=== PATIENT | male | born 1995 | race Caucasian/White ===

== ENCOUNTER 2018-07-09 12:20 | Emergency (ER) | payer BC ==
[2018-07-09] MEDS ORDERED: fentaNYL 100 MCG/2 ML INJ IVP ONE (13:12)
[2018-07-09] MEDS ORDERED: PROPOFOL 200 MG/20 ML VIAL ONE (13:29)
--- NOTE | 2018-07-09 13:43 | EDPHY ---
H & P Smoking Status: Never smoked Time Seen by Provider: 07/09/18 13:00 HPI/ROS: CLINICAL IMPRESSION: Left shoulder dislocation ASSESSMENT/PLAN: 23-year-old male presents to the emergency department with an acute left shoulder dislocation after sleeping for a ball. Patient reports he has had 9 prior shoulder dislocations but has never seen an orthopedic provider. Patient has an obvious anterior shoulder dislocation on initial evaluation. He required propofol for conscious sedation, overseen by Dr. Bell. Please see conscious sedation procedure by Dr. eBll. Shoulder was successfully reduced and post reduction x-rays show no evidence of Hill-Sachs lesion or fracture. He was neurovascularly intact. Placed in a sling and given orthopedic follow- up. Warning signs return to ED sooner alignment discharge. DIFFERENTIAL DX: Differential includes but not limited to acute dislocation, neurovascular compromise, Hill-Sachs lesion, underlying fracture ED PROCEDURES: Procedure: Splint placement. A left arm sling splint was applied by p 3 armament/ordnance ima technician, supervised by myself. After application of the splint I returned and re-examined the patient. The splint was adequately immobilizing the joint and distal to the splint the patient's circulation and sensation was intact. ED COURSE: 1:55 p.m.: Preliminary review of post reduction x-ray shows adequate relocation of shoulder dislocation. No obvious underlying fracture. Patient in a shoulder sling, feeling well. Will plan to discharge to Orthopedics for follow-up CHIEF COMPLAINT: Left shoulder dislocation HPI: 23-year-old male with past medical history of frequent left shoulder dislocations presents to the emergency department with an acute left shoulder dislocation after diving for a ball. Patient reports having had previous shoulder dislocations 9 previous times in the past. He has never had surgery orthopedic consultation. He reports no numbness or loss of sensation to the hand or deltoid muscle. He denies hitting his head and had no other injury. PAST MEDICAL HISTORY: Frequent left shoulder dislocations Pertinent Past Surgical History: No prior Ortho surgery reported Social History: Otherwise healthy REVIEW OF SYSTEMS: All other systems negative Constitutional: No fever, no chills Musculoskeletal: No deformity, + joint pain Skin: No rashes, color change or open wounds. Neurological: No sensory loss or weakness. PHYSICAL EXAM: General Appearance: Alert, oriented, appropriate for age, cooperative, NAD, well hydrated, non-toxic appearing, VSS, no hypoxia. Neurological: Alert and oriented x 3, normal sensation and strength of extremities Skin: Warm, dry, no rashes, no nodules on palpation. Musculoskeletal: Patient with obvious anterior shoulder dislocation on exam. No open wounds. Neurovascularly intact. MEDICAL DECISION MAKING: Patient was seen independently.Secondary supervising physician at time of evaluation was Dr. Bell . Diagnosis: Left shoulder dislocation. New, requires workup Summary: See assessment and plan for summary of ED visit Independent visualization of images, tracing, or specimens yes. Patient Progress stable. (Brandan Bateman) Constitutional: Initial Vital Signs Temperature (C) 36.3 C 07/09/18 12:30 Heart Rate 73 07/09/18 12:30 Respiratory Rate 18 07/09/18 12:30 Blood Pressure 100/66 07/09/18 12:30 O2 Sat (%) 98 07/09/18 12:30 O2 Delivery Mode [Post Room Air Procedure 2nd] O2 Delivery Mode [Post Non-Rebreather Mask Procedure 1st] O2 Delivery Mode [Procedural Non-Rebreather Mask 1st] O2 Delivery Mode [.Immediate Non-Rebreather Mask Pre-Procedure] O2 Delivery Mode Room Air O2 (L/minute) [.Immediate Pre- 15 Procedure] Allergies/Adverse Reactions: No Known Allergies Allergy (Unverified 07/09/18 12:29) MDM/Departure - [facility] Imaging: I viewed and interpreted images myself - [facility] Procedures: Procedure: Procedural sedation. A pre-sedation evaluation was completed on the patient at 13 15. Patient is an appropriate candidate for procedural sedation. The risks of the sedation were discussed with the patient. A time out was completed. The patient was sedated with 100 mcg of fentanyl and 100 mg of propofol in total. The patient was monitored with continuous pulse oximetry and monitoring specialist. There were no complications and no significant hypoxemia. I remained at the bedside for the sedation. The total time I spent in the procedural sedation was 20 min. Procedure: Dislocation reduction. The dislocation of the left shoulder was reduced using counter traction external rotation technique without complications. Post reduction the patient' s neurovascular exam is normal. Post reduction x-ray demonstrates reduction of the joint to the anatomic position. The procedure was performed by myself. (Clemente Bell) Medications Given: Discontinued Medications Fentanyl (Sublimaze) 100 mcg IVP EDNOW ONE Stop: 07/09/18 13:13 Last Admin: 07/09/18 13:17 Dose: 100 mcg Propofol (Diprivan) 100 mg IVP EDNOW ONE Stop: 07/09/18 14:12 Last Admin: 07/09/18 14:12 Dose: 100 mg - Depart Disposition: Home, Routine, Self-Care Clinical Impression: Shoulder dislocation, recurrent Condition: Good Instructions: Shoulder Dislocation (ED) Additional Instructions: DISCHARGE INSTRUCTIONS FROM YOUR DOCTOR Thank you for visiting our emergency department today. Please keep in mind that discharge from the emergency department does not mean that there is nothing wrong - it simply means that we have not identified an emergency condition that requires further evaluation or treatment in the hospital. You should always plan to follow up with primary care for re-evaluation of your condition in the next 2-3 days. If you have been referred to a specialist, please call as soon as possible (today or tomorrow) to schedule your follow up appointment at the appropriate time. Your shoulder was successfully reduced in the emergency department. We strongly recommend he follow up with orthopedics. If you do not have an orthopedic provider a referral was given to you. Ice the shoulder for the next several days and use ibuprofen as needed for pain. Return to the emergency department for recurrent dislocation, severe pain, loss of sensation to the arm hand or fingers, fever or any other concerns. People present with illnesses and injuries in different ways, and it is always possible that we have missed something. You may always return for re-evaluation if symptoms worsen or if they are not improving or if you develop new/different symptoms. Again, thank you for choosing our emergency department. We hope that you feel better. Stand Alone Forms: Work Excuse Referrals: NONE *PRIMARY CARE P,. [Primary Care Provider] - As per Instructions Tyrel Felder MD [Medical Doctor] - 5-7 days, call for appt.
[2018-07-09] MEDS ORDERED: PROPOFOL 200 MG/20 ML VIAL IVP ONE (14:11)
[2018-07-09 14:33] VITALS: BP 126/79
== END 2018-07-09 14:32 | disposition home or self-care (01) ==
PROC: 0RSKXZZ Reposition Left Shoulder Joint, External Approach (ICD-10-PCS; principal; 2018-07-09)
DX: M24.412 Recurrent dislocation, left shoulder (principal); X50.9XXA Other and unspecified overexertion or strenuous movements or postures, initial encounter; Y92.9 Unspecified place or not applicable; Y93.89 Activity, other specified; Y99.9 Unspecified external cause status
CPT/HCPCS: J2704; J3010

== ENCOUNTER 2018-08-08 07:14 | Emergency (ER) | payer BC ==
[2018-08-08] MEDS ORDERED: fentaNYL 100 MCG/2 ML INJ IVP ONE (07:30)
[2018-08-08] MEDS ORDERED: ONDANSETRON 4 MG/2 ML VIAL IVP ONE (07:30)
[2018-08-08] MEDS ORDERED: PROPOFOL 200 MG/20 ML VIAL ONE (07:34)
--- NOTE | 2018-08-08 07:34 | EDPHY ---
H & P Time Seen by Provider: 08/08/18 07:25 HPI/ROS: CHIEF COMPLAINT: "Shoulder dislocation" HISTORY OF PRESENT ILLNESS: Patient is a 23-year-old male who presents emergency department with shoulder dislocation. He has had numerous shoulder dislocations in the past. He was here in July 2018 for shoulder reduction. This required conscious sedation. He states he is usually difficult to get in and they cannot get the shoulder in without conscious sedation. Patient states he was lying in bed when shoulder popped out. No recent trauma. Patient is scheduled with Dr. Felder to have a shoulder repaired. He has no numbness or tingling. REVIEW OF SYSTEMS: 10 systems were reveiwed and are negative with the exception of the elements mentioned in the history of present illness. Past Medical/Surgical History: Includes frequent shoulder dislocation Past surgical history: Negative Social history: The patient does not smoke Smoking Status: Never smoked Physical Exam: Vitals noted GENERAL: Mild acute distress, alert. HEENT: Eyes normal to inspection, normal pharynx, no signs of dehydration. Normal airway NECK: Normal, supple. RESPIRATORY: Clear to auscultation bilaterally, no rales, rhonchi or wheezing. CVS: Regular rate and rhythm, no rubs, murmurs, or gallops. ABDOMEN: Soft, nontender, nondistended, no organomegaly. BACK: Normal to inspection, no CVA tenderness. SKIN: Normal color, no rash, warm, dry. No pallor. EXTREMITIES: Patient has a left shoulder step-off with gap at the deltoid. There is tenderness to palpation. Mild muscle spasm. Neurovascular intact distally. NEURO/PSYCH: Alert and oriented, normal mood and affect, normal motor sensory exam. No obvious cranial nerve deficit. Constitutional: Initial Vital Signs Temperature (C) 36.6 C 08/08/18 07:20 Heart Rate 66 08/08/18 07:20 Respiratory Rate 18 08/08/18 07:20 Blood Pressure 129/96 H 08/08/18 07:20 O2 Sat (%) 98 08/08/18 07:20 O2 Delivery Mode Room Air O2 (L/minute) 15 Allergies/Adverse Reactions: No Known Allergies Allergy (Unverified 08/08/18 07:23) Home Medications: Medication Instructions Recorded Gabapentin 08/08/18 Medical Decision Making ED Course/Re-evaluation: In the emergency department discussed possible etiologies with the patient. I answered all his questions. Attempted deltoid massage with arm elevation. This did not relocate his shoulder. He tolerated well. Patient consented to conscious sedation. He last ate last evening at 10:00 p.m.. He has tolerated conscious sedation well previously. Post reduction x-ray: Please refer the dictated report. Patient has likely Hill-Sachs deformity. The joint was relocated. Patient was placed in a sling. He was neurovascular intact distally post sling placement. The patient recovered well. Answer my questions appropriately. He is given follow-up with . Differential Diagnosis: My differential includes but is not limited to fracture, dislocation, sprain, contusion - Data Points Medications Given: Discontinued Medications Fentanyl (Sublimaze) 100 mcg IVP EDNOW ONE Stop: 08/08/18 07:31 Last Admin: 08/08/18 07:36 Dose: 100 mcg Ondansetron HCl (Zofran) 4 mg IVP EDNOW ONE Stop: 08/08/18 07:31 Last Admin: 08/08/18 07:36 Dose: 4 mg Propofol (Diprivan) 100 mg IVP EDNOW ONE Stop: 08/08/18 08:06 Last Admin: 08/08/18 08:05 Dose: 100 mg Departure - Departure Disposition: Home, Routine, Self-Care Clinical Impression: Dislocation of left shoulder joint Qualifiers: Encounter type: initial encounter Qualified Code(s): S43.005A - Unspecified dislocation of left shoulder joint, initial encounter Condition: Fair Instructions: Shoulder Dislocation (ED) Additional Instructions: Keep your sling in place. Call Friday to make the first available appointment with Dr. Felder. Referrals: Tyrel Felder MD [Medical Doctor] - 2-3 days without fail Stand Alone Forms: Work Excuse
[2018-08-08 08:01] VITALS: BP 109/83
[2018-08-08] MEDS ORDERED: PROPOFOL 200 MG/20 ML VIAL IVP ONE (08:05)
== END 2018-08-08 08:45 | disposition home or self-care (01) ==
LOC: EDUNIT#
PROC: 0RSKXZZ Reposition Left Shoulder Joint, External Approach (ICD-10-PCS; principal; 2018-08-08)
DX: S43.005A Unspecified dislocation of left shoulder joint, initial encounter (principal); X50.9XXA Other and unspecified overexertion or strenuous movements or postures, initial encounter; Y92.9 Unspecified place or not applicable; Y93.9 Activity, unspecified; Y99.9 Unspecified external cause status
CPT/HCPCS: 96374; J2405; J2704; J3010

== ENCOUNTER → 2018-08-13 | Outpatient (CLI) | payer BC | LOC: FIMAGING 12:31 | PROVIDERS: ATTEND Internal Medicine | DX: Z01.818 Encounter for other preprocedural examination (principal); E03.9 Hypothyroidism, unspecified; F32.9 Major depressive disorder, single episode, unspecified ==

== ENCOUNTER 2018-11-03 09:27 | Emergency (ER) | payer BC ==
[2018-11-03] MEDS ORDERED: NS 1,000 ML IV ONE ×2 (09:53)
--- NOTE | 2018-11-03 09:59 | EDPHY ---
H & P Stated Complaint: diarrhea, Nausea x 3 days Time Seen by Provider: 11/03/18 09:44 HPI/ROS: CHIEF COMPLAINT: "I feel dehydrated" HISTORY OF PRESENT ILLNESS: 23-year-old male, generally healthy, no history of chronic abdominal pathology abdominal surgeries complaining of 3 days of intractable diarrhea described as watery diarrhea greater than 20 episodes per 24 hour period. Intermittent abdominal cramping with no focal abdominal pain. Intermittent nausea with no vomiting. He is able tolerate oral intake however this elicits nausea and further episode of diarrhea. Denies: Untreated water sources, international travel, recent antibiotic use, fever, chills, flu-like symptoms, rash PRIMARY CARE PROVIDER: REVIEW OF SYSTEMS: 10 systems reviewed and negative with the exception of the elements mentioned in the history of present illness PAST MEDICAL & SURGICAL HISTORY: No pertinent medical or surgical history SOCIAL HISTORY: Nonsmoker PHYSICAL EXAM (Prior to examination, patient consented to physical exam, hands were washed and my usual and customary physical exam procedures followed) 1) GENERAL: Well-developed, well-nourished, alert and oriented. Appears to be in no acute distress. 2) HEAD: Normocephalic, atraumatic 3) HEENT: Pupils equal, round, reactive to light bilaterally. Sclera anicteric. Nasopharynx, oropharynx, clear, no lesions. Dry mucous membranes. 4) NECK: Full range of motion, no meningeal signs. 5) LUNGS: Clear auscultation bilaterally, no wheezes, no rhonchi, no retractions. 6) HEART: Regular rate and rhythm, no murmur, no heave, no gallop. 7) ABDOMEN: No guarding, no rebound, no focal tenderness, negative McBurney's, negative Dickens's, negative Rovsing's, negative peritoneal sign, I am unable to elicit any abdominal pain 8) MUSCULOSKELETAL: Moving all extremities, no focal areas of tenderness, no obvious trauma. No peripheral edema or discoloration. 9) BACK: No CVA tenderness, no midline vertebral tenderness, no fluctuance, no step-off, no obvious trauma, no visual or palpable abnormality. 10) SKIN: No rash, no petechiae. 11) Psychiatric: Patient is oriented X 3, there is no agitation. DIFFERENTIAL DIAGNOSIS: In no particular order including but not limited to infectious diarrhea, functional diarrhea, bowel obstruction, acute appendicitis - Personal History Current Tetanus Diphtheria and Acellular Pertussis (TDAP): Yes - Medical/Surgical History Hx Asthma: No Hx Chronic Respiratory Disease: No Hx Diabetes: No Hx Cardiac Disease: No Hx Renal Disease: No Hx Cirrhosis: No Hx Alcoholism: No Hx HIV/AIDS: No Hx Splenectomy or Spleen Trauma: No Other PMH: GI issues, anxiety - Social History Smoking Status: Never smoked Constitutional: Initial Vital Signs Temperature (C) 36.7 C 11/03/18 09:29 Heart Rate 91 11/03/18 09:29 Respiratory Rate 18 11/03/18 09:29 Blood Pressure 120/83 H 11/03/18 09:29 O2 Sat (%) 96 11/03/18 09:29 O2 Delivery Mode Room Air Allergies/Adverse Reactions: No Known Allergies Allergy (Verified 11/03/18 09:31) Home Medications: Medication Instructions Recorded Gabapentin 08/08/18 Compazine 10mg (*) 11/03/18 Prozac 20 MG (*) 11/03/18 Synthroid 11/03/18 Medical Decision Making ED Course/Re-evaluation: 1:20 p.m.: Re-evaluation. Patient has received IV hydration. Discussed his laboratory results with him. He was unable provide stool sample while in the ER. Re-evaluated the patient. He is smiling. He has tolerated oral intake. He appears comfortable. No complaints of pain or discomfort. No abdominal pain. Think that acute surgical abdominal pathology such as acute appendicitis is less than likely in this patient in absence of focal abdominal pain. At this time plan will be discharge home. I provided outpatient primary care follow-up information. Definitely if he develops fever, chills, abdominal pain or any other symptoms I recommend he return to the ER immediately for re- evaluation. He feels comfortable being discharged. Patient feels comfortable being discharged. All questions and concerns addressed by myself. Patient given my usual and customary discharge precautions and instructions regarding their clinical impression. Care of patient under supervision of secondary supervising physician Dr Tse . - Data Points Laboratory Results: Laboratory Results 11/03/18 10:08 11/03/18 10:08 11/03/18 11/03/18 10:08 10:08 WBC 7.19 10^3/uL 10^3/uL (3.80-9.50) RBC 5.45 10^6/uL 10^6/uL (4.40-6.38) Hgb 17.2 g/dL g/dL (13.7-17.5) Hct 48.0 % % (40.0-51.0) MCV 88.1 fL fL (81.5-99.8) MCH 31.6 pg pg (27.9-34.1) MCHC 35.8 g/dL g/dL (32.4-36.7) RDW 12.0 % % (11.5-15.2) Plt Count 250 10^3/uL 10^3/uL (150-400) MPV 8.8 fL fL (8.7-11.7) Neut % (Auto) 62.7 % % (39.3-74.2) Lymph % (Auto) 25.9 % % (15.0-45.0) [place] % (Auto) 7.2 % % (4.5-13.0) Eos % (Auto) 2.9 % % (0.6-7.6) Baso % (Auto) 1.0 % % (0.3-1.7) Nucleat RBC Rel Count 0.0 % % (0.0-0.2) Absolute Neuts (auto) 4.51 10^3/uL 10^3/uL (1.70-6.50) Absolute Lymphs (auto) 1.86 10^3/uL 10^3/uL (1.00-3.00) Absolute Monos (auto) 0.52 10^3/uL 10^3/uL (0.30-0.80) Absolute Eos (auto) 0.21 10^3/uL 10^3/uL (0.03-0.40) Absolute Basos (auto) 0.07 10^3/uL 10^3/uL (0.02-0.10) Absolute Nucleated RBC 0.00 10^3/uL 10^3/uL (0-0.01) Immature Gran % 0.3 % % (0.0-1.1) Immature Gran # 0.02 10^3/uL 10^3/uL (0.00-0.10) Sodium 140 mEq/L mEq/L (135-145) Potassium 4.1 mEq/L mEq/L (3.5-5.2) Chloride 108 mEq/L mEq/L (97-110) Carbon Dioxide 23 mEq/l mEq/l (22-31) Anion Gap 9 mEq/L mEq/L (6-14) BUN 13 mg/dL mg/dL (7-23) Creatinine 1.0 mg/dL mg/dL (0.7-1.3) Estimated GFR > 60 Glucose 106 mg/dL H mg/dL (70-100) Calcium 9.9 mg/dL mg/dL (8.5-10.4) Total Bilirubin 0.5 mg/dL mg/dL (0.1-1.4) Conjugated Bilirubin 0.2 mg/dL mg/dL (0.0-0.5) Unconjugated Bilirubin 0.3 mg/dL mg/dL (0.0-1.1) AST 21 IU/L IU/L (17-59) ALT 23 IU/L IU/L (21-72) Alkaline Phosphatase 37 IU/L L IU/L (38-126) Total Protein 7.7 g/dL g/dL (6.3-8.2) Albumin 4.6 g/dL g/dL (3.5-5.0) Lipase 47 IU/L IU/L (23-300) Medications Given: Discontinued Medications Sodium Chloride (Ns) 1,000 mls @ 0 mls/hr IV EDNOW ONE; Wide Open PRN Reason: Protocol Stop: 11/03/18 09:54 Last Admin: 11/03/18 10:18 Dose: 1,000 mls Sodium Chloride (Ns) 1,000 mls @ 0 mls/hr IV EDNOW ONE; Wide Open PRN Reason: Protocol Stop: 11/03/18 09:54 Last Admin: 11/03/18 10:18 Dose: 1,000 mls Departure - Departure Disposition: Home, Routine, Self-Care Clinical Impression: Diarrhea Qualifiers: Diarrhea type: unspecified type Qualified Code(s): R19.7 - Diarrhea, unspecified Condition: Good Instructions: Acute Diarrhea (ED) Additional Instructions: Seek immediate medical attention if you develop new or worsening symptoms, if you develop fevers, chills, inability to tolerate oral intake or any other symptoms that concerns you. Referrals: Chacorta Funez MD [Primary Care Provider] - 1-2 days without fail
[2018-11-03 10:26] LABS: PLATELET COUNT 250 10^3/uL (150-400)
[2018-11-03 12:56] VITALS: BP 127/82
== END 2018-11-03 13:36 | disposition home or self-care (01) ==
DX: R19.7 Diarrhea, unspecified (principal); E86.9 Volume depletion, unspecified

== ENCOUNTER 2018-11-07 19:35 | Emergency (ER) | payer BC ==
[2018-11-07 19:49] VITALS: BP 144/99
--- NOTE | 2018-11-07 20:49 | EDPHY ---
H & P Time Seen by Provider: 11/07/18 19:41 HPI/ROS: HPI Took mushrooms. Now anxious. 23-year-old male by ambulance. This patient took mushrooms at approximately 3: 00 p.m.. He did this for recreational purposes. He states clearly this is not an attempted overdose. He is not suicidal or significantly depressed. He reports after doing so he became very anxious. He denies any other ingestion. No alcohol. No history of trauma or assault. ROS: Constitutional: No fever, no chills. As above. Eyes: No discharge. No changes in vision. ENT: No sore throat. No nasal congestion or rhinorrhea. Respiratory: No cough. No shortness of breath. Cardiac: No chest pain, no palpitations. Gastrointestinal: No abdominal pain, no vomiting, no diarrhea. Genitourinary: No hematuria. No dysuria or increased frequency with urination. Musculoskeletal: No back pain. No neck pain. No myalgias or arthralgias. Skin: No rashes. Neurological: No headache. No focal weakness or altered sensation. Past medical history: GI issues, shoulder surgery, anxiety. Social history: Nonsmoker. His girlfriend is currently in the room with him. No alcohol. Physical Exam: General Appearance: Alert, he is anxious but not in distress. This patient is responding to questions appropriately and in full sentences. This patient appears well-hydrated and well-nourished. Head: Normocephalic atraumatic. Eyes: Pupils equal and round no pallor or injection. No lid edema, erythema or injection. Respiratory: There are no retractions, lungs are clear to auscultation with good air movement bilaterally. Cardiovascular: Regular rate and rhythm. No murmur. Gastrointestinal: Abdomen is soft and nontender, no masses, bowel sounds normal. No focal tenderness at McBurney's point. No Dickens sign. Neurological: Motor sensory function is grossly intact. Cranial nerves are normal. Gait is normal. Skin: Warm and dry, no rashes. Musculoskeletal: Neck is supple and nontender. Extremities are symmetrical. All joints range without pain or impingement. Psychiatric: No agitation. No depression. Database: EKG: Imaging: Procedures: Emergency department course: Triage vital signs reviewed. He is mildly hypertensive. Vital signs are otherwise normal. His girlfriend is now present in the room with him. He is feeling much more comfortable. He was given 1 mg of oral Ativan for anxiety. He feels comfortable and safe going home with his girlfriend who will drive him home. She will also stay with him tonight. He is not suicidal. He denies significant depression. He denies any other ingestion. Follow-up and return to emergency department precautions have been reviewed with him. All of his questions were answered. He was discharged from the emergency department in good condition. Differential Diagnosis: The differential diagnosis on this patient includes but is not limited to anxiety reaction, psychotropic street drug affect. Suicidal ideation, sympathomimetic toxidrome, anticholinergic toxidrome unlikely. This represents a partial list of diagnoses considered. These considerations are based on history, physical exam, past history, reassessment and diagnostic testing. Smoking Status: Never smoked Constitutional: Initial Vital Signs Temperature (C) 37.3 C 11/07/18 19:48 Heart Rate 84 11/07/18 19:48 Respiratory Rate 20 11/07/18 19:48 Blood Pressure 144/99 H 11/07/18 19:48 O2 Sat (%) 95 11/07/18 19:48 O2 Delivery Mode Room Air Allergies/Adverse Reactions: No Known Allergies Allergy (Verified 11/07/18 19:48) Home Medications: Medication Instructions Recorded Gabapentin 08/08/18 Compazine 10mg (*) 11/03/18 Prozac 20 MG (*) 11/03/18 Synthroid 11/03/18 Departure - Departure Disposition: Home, Routine, Self-Care Clinical Impression: Psychotropic drug use, Anxiety reaction Condition: Good Instructions: Anxiety (ED) Additional Instructions: Read and follow provided instructions. Follow-up with your primary care physician on Friday for re-evaluation as needed. Do not take drugs or drink alcohol. Return to the emergency department for worsening symptoms, worsening anxiety, difficulty breathing or other serious concerns. Referrals: Chacorta Funez MD [Primary Care Provider] - As per Instructions
[2018-11-07] MEDS ORDERED: LORazepam 1 MG TAB PO ONE (20:52)
== END 2018-11-07 21:09 | disposition home or self-care (01) ==
LOC: EDUNIT#
DX: F16.90 Hallucinogen use, unspecified, uncomplicated (principal); F41.9 Anxiety disorder, unspecified